=== PATIENT | male | born 1965 | race Caucasian/White ===

== ENCOUNTER 2018-12-17 20:44 | Emergency (ER) | payer OTHER ==
[~2018-12-17] VITALS: Ht 170.2 cm; Wt 75.4 kg
[~2018-12-17 20:44] MED LIST: CIPR500T4 PO; HYDR-3980 PO; METR500T PO; NALO4SPR NS; ONDA4TAB14 PO
[2018-12-17 21:08] VITALS: Ht 170.2 cm; Wt 75.4 kg
[2018-12-17] MEDS ORDERED: PIPER-TAZO 3.375 GM IV (PMX) 100 ML IVPB STA (21:50)
[2018-12-17] MEDS ORDERED: SODIUM CHLORIDE 0.9% 1L BAG IV* STA (21:50)
[2018-12-17] MEDS ORDERED: ACETAMINOPHEN 325 MG TAB PO STA (21:50)
[2018-12-17] MEDS ORDERED: ONDANSETRON 4 MG INJ IV STA (22:12)
[2018-12-17] MEDS ORDERED: morphine 4 MG/ML VIAL IV STA (22:12)
[2018-12-18 01:13] VITALS: BP 128/66; PULSE 83; RESP 16
== END 2018-12-18 01:29 | disposition home or self-care (01) ==
LOC: E/R 20:44
DX: K57.32 Diverticulitis of large intestine without perforation or abscess without bleeding (principal)
CPT/HCPCS: 36415; 74176; 80053; 81001; 83605; 84484; 85025; 85610; 85730; 87040; 87086; 93005; 96374; 96375; J2270; J2405; J2543; J7030; Z7502; Z7610